=== PATIENT | male | born 1995 | race Two or more races ===

== ENCOUNTER 2022-08-25 01:03 | Emergency (ER) | payer SELFPAY ==
[~2022-08-25] VITALS: Ht 177.8 cm; Wt 68.0 kg
[2022-08-25] MEDS ORDERED: HALOPERIDOL LACTATE 5 MG/1 ML VIAL ONE (01:34)
[2022-08-25] MEDS ORDERED: diphenhydrAMINE 50 MG/1 ML VIAL ONE (01:34)
[2022-08-25] MEDS ORDERED: LORAZEPAM 2 MG/1 ML VIAL ONE (01:35)
[2022-08-25] MEDS ORDERED: LORAZEPAM 2 MG/1 ML VIAL IM ONE (01:45)
[2022-08-25] MEDS ORDERED: THIAMINE HCL 100 MG TABLET PO ONE (01:45)
[2022-08-25] MEDS ORDERED: HALOPERIDOL LACTATE 5 MG/1 ML VIAL IM ONE (01:45)
[2022-08-25] MEDS ORDERED: diphenhydrAMINE 50 MG/1 ML VIAL IM ONE (01:45)
[2022-08-25] MEDS ORDERED: THIAMINE HCL 100 MG TABLET ONE (01:53)
[2022-08-25 01:55] LABS: HEMATOCRIT 44.7 % (36.7-47.1); MEAN CORPUSCULAR HEMOGLOBIN 31.7 uug (23.8-33.4); MEAN CORPUSCULAR VOLUME 90.5 fL (73.0-96.2); PLATELET COUNT (AUTO) 216 K/uL (152-348)
[2022-08-25 02:00] LABS: CREATININE 1.2 mg/dL (0.6-1.3); POTASSIUM 3.7 mmol/L (3.5-5.1)
[2022-08-25 02:06] LABS: BILIRUBIN,DIRECT 0.1 mg/dL (0.0-0.2); BILIRUBIN,TOTAL 0.4 mg/dL (0.2-1.0); TOTAL PROTEIN, SERUM 8.1 g/dL (6.4-8.2)
--- NOTE | 2022-08-25 07:45 | NUR ---
Received the patient from the off-going nurse. Patient is responsive to pressure from tactile stimulation, saturing in the upper 90s on room air. Patient is scheduled for discharge once he is awake and able to tolerate walking safely. Patient is stable on the strecher in the lowest position, call bro within reach.
--- NOTE | 2022-08-25 11:36 | NUR ---
Patient continues to sleep, but is arousable with tactile stimulation. patient will continue resting , with periodic checks and once able to respond to verbal stimulation, will be walked and if safe; will be discharged. Patient is stable on the stretcher in the lowest position, call bro within reach and awaiting discharge.
--- NOTE | 2022-08-25 14:14 | NUR ---
Patient is awake, alert and oriented X 4. Patient given a meal tray, tolerated food given. Patient ambulaterd safely on his own. Patient cleared for discharge home, instructions provided, stable left ambulatory.
== END 2022-08-25 14:14 | disposition home or self-care (01) ==
LOC: ER 01:03
DX: F10.121 Alcohol abuse with intoxication delirium (principal); F19.10 Other psychoactive substance abuse, uncomplicated; Y90.7 Blood alcohol level of 200-239 mg/100 ml; R45.1 Restlessness and agitation; R04.0 Epistaxis; F17.210 Nicotine dependence, cigarettes, uncomplicated; J45.909 Unspecified asthma, uncomplicated; Z78.1 Physical restraint status
CPT/HCPCS: 80076; 80048; 85025; 36415; 99285; 96372; 80320; J1200; J1630; J2060; A4663; G0480